=== PATIENT | female | born 1960 ===

== ENCOUNTER → 2017-09-16 15:12 | Outpatient (CLI) | payer OTHER, SELFPAY ==
--- NOTE | 2017-09-16 | DI.MG.S_ITS ---
BILATERAL DIGITAL SCREENING MAMMOGRAM 3D/2D WITH CAD: 09/16/2017 CLINICAL: Patient presents for routine screening. S/P bilateral augmentation. Family history of breast cancer. Comparison is made to exams dated: 02/07/2016 mammogram, 11/19/2011 mammogram, and 04/21/2007 mammogram - [facility] [place]. There are scattered fibroglandular elements in both breasts. Current study was also evaluated with a Computer Aided Detection (CAD) system. Bilateral breast implants are intact. No significant masses, calcifications, or other findings are seen in either breast. There has been no significant interval change. IMPRESSION: NEGATIVE There is no mammographic evidence of malignancy. A 1 year screening mammogram is recommended. This exam was interpreted at Station ID: [id number]. NOTE: For mammograms, a report in lay terms will be sent to the patient. Approximately 15% of breast malignancies will not be visualized mammographically. In the management of a palpable breast mass, a negative mammogram must not discourage biopsy of a clinically suspicious lesion. Electronically Signed By: Saturnino hernandez/eduardo:09/16/2017 15:57:53 letter sent: Normal Exam ACR BI-RADS Category 1: Negative [id number]
== END ==
PROVIDERS: Visit Provider Internal Medicine
DX: Z12.31 Encounter for screening mammogram for malignant neoplasm of breast (principal); Z80.3 Family history of malignant neoplasm of breast; Z98.82 Breast implant status
CPT/HCPCS: 77063; 77067

== ENCOUNTER 2017-11-25 13:45 | Outpatient (RCR) | payer OTHER, SELFPAY ==
--- NOTE | 2017-10-06 14:30 | PT.OIE ---
Current Diagnoses Lumbago with sciatica, right side (10/06/17) Past Medical History (Last Updated 09/24/17 @ 17:27 by Yolie Argueta LPN) ADHD (attention deficit hyperactivity disorder) (Chronic Unknown) Anxiety (Chronic Unknown) Bipolar disorder (Chronic Unknown) Chronic back pain (Chronic Unknown) Depression (Chronic Unknown) Fibromyalgia (Chronic 2010) Hypothyroidism (Chronic Unknown) PTSD (post-traumatic stress disorder) (Chronic Unknown) Suicidal ideations (Chronic Unknown) Tinnitus of both ears (Chronic Unknown) Ankle pain (Resolved 2006) Fractures (Resolved ~2008) Positive TB test (Resolved Unknown) Past Surgical History (Last Updated 09/24/17 @ 17:27 by Yolie Argueta LPN) History of tonsillectomy (Resolved 1969) Hx of appendectomy (Resolved 1986) Hx of bladder repair surgery (Resolved Unknown) Hx of hysterectomy (Resolved 2011) Hx of tubal ligation (Resolved 1997) Provider Visit Care Team Role Provider Type Layo Aleman Attending Provider Non-Staff Primary Care Provider Specialty: [facility] Address: [address] [place] [address] Email: Physical Therapy Initial Evaluation PT-OP-A Visit Information Start: 10/07/17 17:41 Freq: Status: Active Protocol: Document 10/06/17 13:45 DCW (Rec: 10/07/17 18:20 DCW [id number]) Out-Patient Physical Therapy Visit Information Visit Information Visit Type Initial Evaluation Visit Start Time 13:45 Visit Stop Time 14:30 Total Visit Minutes 45 Visit Number 1 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 Pt reports she received an MRI last December, which showed scoliosis and arthritis. Pt reports her pain on an average day is a 3-4/10 , however when she has a bad episode, pain increases to a 15/10. It's worse than childbirth. A lot worse, and I had all three kids without any drugs. Pt reports her pain appears to worsen with changes in the weather, and reports last winter was her worst period of time. Pt reports that nothing helps her pain, and she has had to go to the ER multiple times to get any relief. Treatment Goals Patient/Caregiver Goals I want to be able to go back to the gym a few days a week without worrying about my back . And I want to be able to play with my grandkids. Prior Functional Status Baseline Function- ADL's Independent Baseline Function- Mobility Independent Current Functional Impairments (Reported) Functional Limitations- Recreation/ Generally able to do most of Hobbies her hobbies, however when she is experiencing an episode of bad pain, she is unable to do anything at all. Personal Factors Other Personal Factors That May Effect Bipolar disorder, Depression, Therapy/Recovery Hx TBI, Fibromyalgia PT-OP-C Subjective Start: 10/07/17 17:41 Freq: Status: Active Protocol: Document 10/06/17 13:45 DCW (Rec: 10/07/17 18:20 DCW [id number]) OP-PT Pain Assessment Pain Assessment Grid Paper Pain Assessment Grid Completed Yes Location Lower Back Intensity 4 Scale Used Numeric (1 - 10) PT-OP-F Manual Assessment Start: 10/07/17 17:41 Freq: Status: Active Protocol: Document 10/06/17 13:45 DCW (Rec: 10/07/17 18:20 DCW [id number]) Manual Assessments Soft Tissue Assessment Soft Tissue Mobility Assessment Moderate Tone: Right Quadratus Lumborum, Right Piriformis Joint Mobility Assessment Joint Mobility Assessment Elevated right PIIS, depressed left PSIS PT-OP-K Range of Motion Start: 10/07/17 17:41 Freq: Status: Active Protocol: Document 10/06/17 13:45 DCW (Rec: 10/07/17 18:20 DCW [id number]) Lumbar Spine Range of Motion Lumbar Spine Active Degrees Testing Position Standing Flexion 60 Extension 20 ROM Limitations Pain PT-OP-L Special Tests Start: 10/07/17 17:41 Freq: Status: Active Protocol: Document 10/06/17 13:45 DCW (Rec: 10/07/17 18:20 DCW [id number]) Special Tests Lumbar Spine Special Tests Other- 1 Test Results Lateral SI pressure - R positive Straight Leg Raise Test Results Positive R ipsilateral Slump Test Results Positive bilaterally Hip Special Tests CARL Test Results Positive R ipsilateral PT-OP-M Strength Start: 10/07/17 18:20 Freq: Status: Active Protocol: Document 10/06/17 13:45 DCW (Rec: 10/07/17 18:23 DCW [id number]) Trunk Strength Trunk Manual Muscle Testing Testing Position Supine Core Stabilization Poor body awareness, difficulty kasey transverse abdominus, unable to hole PPT with TrA activation longer than 5 seconds. 3/5 Hip Strength Hip Manual Muscle Testing Right Flexion (L2) 4 Good Abduction 4 Good Adduction 4- Good- External Rotation 4 Good Internal Rotation 4- Good- Left Flexion (L2) 4 Good Abduction 4 Good Adduction 4- Good- External Rotation 4 Good Internal Rotation 4- Good- Knee Strength Knee Manual Muscle Testing Right Flexion (S2) 4 Good Extension (L3) 4+ Good+ Left Flexion (S2) 4 Good Extension (L3) 4+ Good+ PT-OP-Q Treatments Start: 10/07/17 17:41 Freq: Status: Active Protocol: Document 10/06/17 13:45 DCW (Rec: 10/07/17 18:20 [facility] [id number]) Therapeutic Exercises Supine Exercises 2 Supine Exercise Name PPT /c trA activation Side bilateral Comments 5 second hold 1 Supine Exercise Name Opposite [id number] Piriformis stretch Side right PT-OP-T Assessment and Plan Start: 10/07/17 17:41 Freq: Status: Active Protocol: Document 10/06/17 13:45 DCW (Rec: 10/07/17 18:20 [facility] [id number]) Physical Therapy Assessment Rehab Potential Rehabilitation Potential Good Evaluation Complexity Number of Personal Factors/Comorbidities 3 or More Number of Body Systems Impaired 4 or More Clinical Presentation at Evaluation Unstable Impairments Impairments Activity Tolerance Pain Posture ROM Soft Tissue Mobility Strength Tone Goals Five Impairment Sacral tilt Short Term Goal (STG) Positioning of the sacrum WNL STG Duration 10/27/17 Four Impairment Lumbar ROM Alf Goal (LTG) Lumbar flexion/extension to WNL LTG Duration 9/17/18 Three Impairment Strength Short Term Goal (STG) Bilateral lower extremity MMT to grossly 4+/5 STG Duration 10/27/17 Alf Goal (LTG) Core strength to 4/5 LTG Duration 11/17/17 Two Impairment Activity Participation Alf Goal (LTG) Pt to attend gym 3x/ week over a two week period with no increased back pain LTG Duration 11/17/17 One Impairment Pt does not have an appropriate HEP Short Term Goal (STG) Pt to display independence and compliance with HEP STG Duration 10/27/17 Assessment Summary Assessment Pt presents with radicular low back pain secondary to DJD and arthritis, LE weakness, increased right-sided muscle tone, sacral tilting, and significant core weakness. Pt should benefit from skilled therapy focusing on core and leg strengthening, stability training, manual therapy, and pain-control modalities. Pt may benefit from an SI belt to help stabilize her SI joint if therapy is not successful. Physical Therapy Plan Frequency and Duration Frequency of Treatment 2x/Week Duration of Treatment 8 weeks Plan of Care Start Date 10/06/17 Plan of Care End Date 12/01/17 Therapeutic Interventions Therapeutic Interventions Aquatic Therapy Home Exercise Program Joint Mobilizations Manual Therapy Neuromuscular Re-education Self-Care/Home Management Soft Tissue Mobilization Taping Therapeutic Activities Therapeutic Exercises Modalities Cold Pack/Ice Massage Electric Stimulation Hot Packs Traction- Mechanical Ultrasound Next Visit Focus/Plan Next Note Type Treatment Note Next Visit Plan Core strengthening, SI joint mobilizations, STM, traction, modalities
--- NOTE | 2017-10-06 14:30 | PT.OPPOC ---
Current Diagnoses Lumbago with sciatica, right side (10/06/17) Provider Visit Care Team Role Provider Type Layo Aleman Attending Provider Non-Staff Primary Care Provider Specialty: Family Practice Address: [address] [place] [address] [id number], [place], [address] Email: Plan Of Care PT-OP-T Assessment and Plan Start: 10/07/17 17:41 Freq: Status: Active Protocol: Document 10/06/17 13:45 DCW (Rec: 10/07/17 18:20 DCW [id number]) Physical Therapy Assessment Rehab Potential Rehabilitation Potential Good Evaluation Complexity Number of Personal Factors/Comorbidities 3 or More Number of Body Systems Impaired 4 or More Clinical Presentation at Evaluation Unstable Impairments Impairments Activity Tolerance Pain Posture ROM Soft Tissue Mobility Strength Tone Goals Five Impairment Sacral tilt Short Term Goal (STG) Positioning of the sacrum WNL STG Duration 10/27/17 Four Impairment Lumbar ROM Jail Goal (LTG) Lumbar flexion/extension to WNL LTG Duration 11/17/17 Three Impairment Strength Short Term Goal (STG) Bilateral lower extremity MMT to grossly 4+/5 STG Duration 10/27/17 Corn Shredder Goal (LTG) Core strength to 4/5 LTG Duration 11/17/17 Two Impairment Activity Participation Corn Shredder Goal (LTG) Pt to attend gym 3x/ week over a two week period with no increased back pain LTG Duration 11/17/17 One Impairment Pt does not have an appropriate HEP Short Term Goal (STG) Pt to display independence and compliance with HEP STG Duration 10/27/17 Assessment Summary Assessment Pt presents with radicular low back pain secondary to DJD and arthritis, LE weakness, increased right-sided muscle tone, sacral tilting, and significant core weakness. Pt should benefit from skilled therapy focusing on core and leg strengthening, stability training, manual therapy, and pain-control modalities. Pt may benefit from an SI belt to help stabilize her SI joint if therapy is not successful. Physical Therapy Plan Frequency and Duration Frequency of Treatment 2x/Week Duration of Treatment 8 weeks Plan of Care Start Date 10/06/17 Plan of Care End Date 12/01/17 Therapeutic Interventions Therapeutic Interventions Aquatic Therapy Home Exercise Program Joint Mobilizations Manual Therapy Neuromuscular Re-education Self-Care/Home Management Soft Tissue Mobilization Taping Therapeutic Activities Therapeutic Exercises Modalities Cold Pack/Ice Massage Electric Stimulation Hot Packs Traction- Mechanical Ultrasound Next Visit Focus/Plan Next Note Type Treatment Note Next Visit Plan Core strengthening, SI joint mobilizations, STM, traction, modalities Plan of Care Dates Plan of Care Start Date 10/06/17 Plan of Care End Date 12/01/17 Please Sign and Return: I have reviewed this Plan of Care and certify that the skilled therapy services above are required to meet the patient?s needs. Physician Signature Date Printed Name and Credentials Clinical Instructor Signature Printed Name and Credentials
--- NOTE | 2017-10-21 16:23 | PT.OTN ---
Current Diagnoses Lumbago with sciatica, right side (10/21/17) Physical Therapy Treatment Note PT-OP-A Visit Information Start: 10/07/17 17:41 Freq: Status: Active Protocol: Document 10/21/17 15:11 GGD (Rec: 10/21/17 15:17 GGD [email or web address]) Out-Patient Physical Therapy Visit Information Visit Information Visit Type Treatment Note Visit Start Time 14:30 Visit Stop Time 15:25 Total Visit Minutes 55 Visit Number 2 Number of VP PUBLIC RELATIONS Visits 1 Evaluation Information Evaluation Date 10/06/17 PT-OP-B Current Condition Start: 10/07/17 17:41 Freq: Status: Active Protocol: Document 10/06/17 13:45 DCW (Rec: 10/07/17 18:20 DCW [id number]) Current Condition History of Current Condition Onset Date s/p one year Current Complaints Radicular low back pain History of Current Condition Pt is a 56 year old female presenting with a year-long history of low back pain radiating down her right leg, from her posterior hip to her lateral thigh, across her anterior knee, and down to her dorsal foot. Pt reports she received an MRI last December, which showed scoliosis and arthritis. Pt reports her pain on an average day is a 3-4/10 , however when she has a bad episode, pain increases to a 15/10. It's worse than childbirth. A lot worse, and I had all three kids without any drugs. Pt reports her pain appears to worsen with changes in the weather, and reports last winter was her worst period of time. Pt reports that nothing helps her pain, and she has had to go to the ER multiple times to get any relief. Treatment Goals Patient/Caregiver Goals I want to be able to go back to the gym a few days a week without worrying about my back . And I want to be able to play with my grandkids. Prior Functional Status Baseline Function- ADL's Independent Baseline Function- Mobility Independent Current Functional Impairments (Reported) Functional Limitations- Recreation/ Generally able to do most of Hobbies her hobbies, however when she is experiencing an episode of bad pain, she is unable to do anything at all. Personal Factors Other Personal Factors That May Effect Bipolar disorder, Depression, Therapy/Recovery Hx TBI, Fibromyalgia PT-OP-C Subjective Start: 10/07/17 17:41 Freq: Status: Active Protocol: Document 10/21/17 15:11 GGD (Rec: 10/21/17 15:17 GGD [email or web address]) OP-PT Subjective Patient Comments Patient Comments PT states she doing HEP without increase in pain. PT-OP-F Manual Assessment Start: 10/07/17 17:41 Freq: Status: Active Protocol: Document 10/06/17 13:45 DCW (Rec: 10/07/17 18:20 DCW [id number]) Manual Assessments Soft Tissue Assessment Soft Tissue Mobility Assessment Moderate Tone: Right Quadratus Lumborum, Right Piriformis Joint Mobility Assessment Joint Mobility Assessment Elevated right PIIS, depressed left PSIS PT-OP-K Range of Motion Start: 10/07/17 17:41 Freq: Status: Active Protocol: Document 10/06/17 13:45 DCW (Rec: 10/07/17 18:20 DCW [id number]) Lumbar Spine Range of Motion Lumbar Spine Active Degrees Testing Position Standing Flexion 60 Extension 20 ROM Limitations Pain PT-OP-L Special Tests Start: 10/07/17 17:41 Freq: Status: Active Protocol: Document 10/06/17 13:45 DCW (Rec: 10/07/17 18:20 DCW [id number]) Special Tests Lumbar Spine Special Tests Other- 1 Test Results Lateral SI pressure - R positive Straight Leg Raise Test Results Positive R ipsilateral Slump Test Results Positive bilaterally Hip Special Tests CARL Test Results Positive R ipsilateral PT-OP-M Strength Start: 10/07/17 18:20 Freq: Status: Active Protocol: Document 10/06/17 13:45 DCW (Rec: 10/07/17 18:23 DCW [id number]) Trunk Strength Trunk Manual Muscle Testing Testing Position Supine Core Stabilization Poor body awareness, difficulty kasey transverse abdominus, unable to hole PPT with TrA activation longer than 5 seconds. 3/5 Hip Strength Hip Manual Muscle Testing Right Flexion (L2) 4 Good Abduction 4 Good Adduction 4- Good- External Rotation 4 Good Internal Rotation 4- Good- Left Flexion (L2) 4 Good Abduction 4 Good Adduction 4- Good- External Rotation 4 Good Internal Rotation 4- Good- Knee Strength Knee Manual Muscle Testing Right Flexion (S2) 4 Good Extension (L3) 4+ Good+ Left Flexion (S2) 4 Good Extension (L3) 4+ Good+ PT-OP-Q Treatments Start: 10/07/17 17:41 Freq: Status: Active Protocol: Document 10/21/17 15:11 GGD (Rec: 10/21/17 15:17 GGD [email or web address]) Therapeutic Exercises Supine Exercises 6 Supine Exercise Name Hamstring str. 5 Supine Exercise Name Hands on knees push Reps/Minutes 30 4 Supine Exercise Name PPT with marches 3 Supine Exercise Name bridges 2 Supine Exercise Name PPT /c trA activation Side bilateral Comments 5 second hold 1 Supine Exercise Name Opposite [id number]-[id number] Piriformis stretch Side right Sidelying Exercises 1 Sidelying Exercise Name Clamshells Manual Therapy Treatment Soft Tissue Mobilization 1 Body Location L/S and priformis Mobilization Type Myofascial Release Rolling Intensity/Depth Moderate Body Position Sidelying PT-OP-R Modalities Start: 10/07/17 17:41 Freq: Status: Active Protocol: Document 10/21/17 15:11 GGD (Rec: 10/21/17 15:17 GGD [email or web address]) Electric Stimulation Electric Stimulation Interferential Current (IFC) Body Location L/S Duration (Minutes) 15 Contraction Type Normal Patient Position Hooklying Combined With Heat/Cold Hot Pack PT-OP-T Assessment and Plan Start: 10/07/17 17:41 Freq: Status: Active Protocol: Document 10/21/17 15:11 GGD (Rec: 10/21/17 15:17 GGD [email or web address]) Physical Therapy Assessment Assessment Summary Assessment Pt need cues for exercise. She had no C/O pain with exercise . She has poor core control. Physical Therapy Plan Frequency and Duration Frequency of Treatment 2x/Week Duration of Treatment 8 weeks Plan of Care Start Date 10/06/17 Plan of Care End Date 12/01/17 Next Visit Focus/Plan Next Note Type Treatment Note Next Visit Plan Core strengthening, SI joint mobilizations, STM, traction, modalities
--- NOTE | 2017-10-28 16:01 | PT.OTN ---
Current Diagnoses Lumbago with sciatica, right side (10/28/17) Physical Therapy Treatment Note PT-OP-A Visit Information Start: 10/07/17 17:41 Freq: Status: Active Protocol: Document 10/28/17 14:30 GGD (Rec: 10/28/17 16:01 GGD [email or web address]) Out-Patient Physical Therapy Visit Information Visit Information Visit Type Treatment Note Visit Start Time 14:30 Visit Stop Time 15:25 Total Visit Minutes 55 Visit Number 3 Number of OPERATIONS EXPERT Visits 2 Evaluation Information Evaluation Date 10/06/17 PT-OP-B Current Condition Start: 10/07/17 17:41 Freq: Status: Active Protocol: Document 10/06/17 13:45 DCW (Rec: 10/07/17 18:20 DCW [id number]) Current Condition History of Current Condition Onset Date s/p one year Current Complaints Radicular low back pain History of Current Condition Pt is a 56 year old female presenting with a year-long history of low back pain radiating down her right leg, from her posterior hip to her lateral thigh, across her anterior knee, and down to her dorsal foot. Pt reports she received an MRI last December, which showed scoliosis and arthritis. Pt reports her pain on an average day is a 3-4/10 , however when she has a bad episode, pain increases to a 15/10. It's worse than childbirth. A lot worse, and I had all three kids without any drugs. Pt reports her pain appears to worsen with changes in the weather, and reports last winter was her worst period of time. Pt reports that nothing helps her pain, and she has had to go to the ER multiple times to get any relief. Treatment Goals Patient/Caregiver Goals I want to be able to go back to the gym a few days a week without worrying about my back . And I want to be able to play with my grandkids. Prior Functional Status Baseline Function- ADL's Independent Baseline Function- Mobility Independent Current Functional Impairments (Reported) Functional Limitations- Recreation/ Generally able to do most of Hobbies her hobbies, however when she is experiencing an episode of bad pain, she is unable to do anything at all. Personal Factors Other Personal Factors That May Effect Bipolar disorder, Depression, Therapy/Recovery Hx TBI, Fibromyalgia PT-OP-C Subjective Start: 10/07/17 17:41 Freq: Status: Active Protocol: Document 10/28/17 14:30 GGD (Rec: 10/28/17 16:01 GGD [email or web address]) OP-PT Subjective Patient Comments Patient Comments Pt states that she not have had pain. She been doing HEP and would like to increase HEP . PT-OP-F Manual Assessment Start: 10/07/17 17:41 Freq: Status: Active Protocol: Document 10/06/17 13:45 DCW (Rec: 10/07/17 18:20 DCW [id number]) Manual Assessments Soft Tissue Assessment Soft Tissue Mobility Assessment Moderate Tone: Right Quadratus Lumborum, Right Piriformis Joint Mobility Assessment Joint Mobility Assessment Elevated right PIIS, depressed left PSIS PT-OP-K Range of Motion Start: 10/07/17 17:41 Freq: Status: Active Protocol: Document 10/06/17 13:45 DCW (Rec: 10/07/17 18:20 DCW [id number]) Lumbar Spine Range of Motion Lumbar Spine Active Degrees Testing Position Standing Flexion 60 Extension 20 ROM Limitations Pain PT-OP-L Special Tests Start: 10/07/17 17:41 Freq: Status: Active Protocol: Document 10/06/17 13:45 DCW (Rec: 10/07/17 18:20 DCW [id number]) Special Tests Lumbar Spine Special Tests Other- 1 Test Results Lateral SI pressure - R positive Straight Leg Raise Test Results Positive R ipsilateral Slump Test Results Positive bilaterally Hip Special Tests CARL Test Results Positive R ipsilateral PT-OP-M Strength Start: 10/07/17 18:20 Freq: Status: Active Protocol: Document 10/06/17 13:45 DCW (Rec: 10/07/17 18:23 DCW [id number]) Trunk Strength Trunk Manual Muscle Testing Testing Position Supine Core Stabilization Poor body awareness, difficulty kasey transverse abdominus, unable to hole PPT with TrA activation longer than 5 seconds. 3/5 Hip Strength Hip Manual Muscle Testing Right Flexion (L2) 4 Good Abduction 4 Good Adduction 4- Good- External Rotation 4 Good Internal Rotation 4- Good- Left Flexion (L2) 4 Good Abduction 4 Good Adduction 4- Good- External Rotation 4 Good Internal Rotation 4- Good- Knee Strength Knee Manual Muscle Testing Right Flexion (S2) 4 Good Extension (L3) 4+ Good+ Left Flexion (S2) 4 Good Extension (L3) 4+ Good+ PT-OP-Q Treatments Start: 10/07/17 17:41 Freq: Status: Active Protocol: Document 10/28/17 14:30 GGD (Rec: 10/28/17 16:01 GGD [email or web address]) Therapeutic Exercises Supine Exercises 6 Supine Exercise Name Hamstring str. 5 Supine Exercise Name Hands on knees push Reps/Minutes 30 4 Supine Exercise Name PPT with marches 3 Supine Exercise Name bridges with marches 1 Supine Exercise Name Opposite yelh-is-rtrkpfge Piriformis stretch Side right Sidelying Exercises 1 Sidelying Exercise Name Clamshells Other Exercises 3 Other Exercise Name Quad alternative leg lift 2 Other Exercise Name Dioni pose 1 Other Exercise Name cat cow in quad PT-OP-R Modalities Start: 10/07/17 17:41 Freq: Status: Active Protocol: Document 10/28/17 14:30 GGD (Rec: 10/28/17 16:01 GGD [email or web address]) Electric Stimulation Electric Stimulation Interferential Current (IFC) Body Location L/S Duration (Minutes) 15 Contraction Type Normal Patient Position Hooklying Combined With Heat/Cold Hot Pack PT-OP-T Assessment and Plan Start: 10/07/17 17:41 Freq: Status: Active Protocol: Document 10/28/17 14:30 GGD (Rec: 10/28/17 16:01 GGD [email or web address]) Physical Therapy Assessment Assessment Summary Assessment Pt needing cues for exercise techinque. She able to progress strengthening and flexibility. She is improving with core control. Physical Therapy Plan Frequency and Duration Frequency of Treatment 2x/Week Duration of Treatment 8 weeks Plan of Care Start Date 10/06/17 Plan of Care End Date 12/01/17 Next Visit Focus/Plan Next Note Type Treatment Note Next Visit Plan Core strengthening, HEP progression.
--- NOTE | 2017-10-31 12:40 | PT.OTN ---
Current Diagnoses Lumbago with sciatica, right side (10/31/17) Physical Therapy Treatment Note PT-OP-A Visit Information Start: 10/07/17 17:41 Freq: Status: Active Protocol: Document 10/31/17 12:40 RCC (Rec: 10/31/17 14:56 RCC [email or web address]) Out-Patient Physical Therapy Visit Information Visit Information Visit Type Treatment Note Visit Start Time 12:00 Visit Stop Time 12:40 Total Visit Minutes 40 Visit Number 4 Number of GASOLINE ATTENDANT Visits 0 Evaluation Information Evaluation Date 10/06/17 PT-OP-B Current Condition Start: 10/07/17 17:41 Freq: Status: Active Protocol: Document 10/06/17 13:45 DCW (Rec: 10/07/17 18:20 DCW [id number]) Current Condition History of Current Condition Onset Date s/p one year Current Complaints Radicular low back pain History of Current Condition Pt is a 56 year old female presenting with a year-long history of low back pain radiating down her right leg, from her posterior hip to her lateral thigh, across her anterior knee, and down to her dorsal foot. Pt reports she received an MRI last December, which showed scoliosis and arthritis. Pt reports her pain on an average day is a 3-4/10 , however when she has a bad episode, pain increases to a 15/10. It's worse than childbirth. A lot worse, and I had all three kids without any drugs. Pt reports her pain appears to worsen with changes in the weather, and reports last winter was her worst period of time. Pt reports that nothing helps her pain, and she has had to go to the ER multiple times to get any relief. Treatment Goals Patient/Caregiver Goals I want to be able to go back to the gym a few days a week without worrying about my back . And I want to be able to play with my grandkids. Prior Functional Status Baseline Function- ADL's Independent Baseline Function- Mobility Independent Current Functional Impairments (Reported) Functional Limitations- Recreation/ Generally able to do most of Hobbies her hobbies, however when she is experiencing an episode of bad pain, she is unable to do anything at all. Personal Factors Other Personal Factors That May Effect Bipolar disorder, Depression, Therapy/Recovery Hx TBI, Fibromyalgia PT-OP-C Subjective Start: 10/07/17 17:41 Freq: Status: Active Protocol: Document 10/31/17 12:40 RCC (Rec: 10/31/17 14:56 RCC [email or web address]) OP-PT Subjective Patient Comments Patient Comments pt still without pain radiating down RLE, but still pain in lower back SI region. PT-OP-F Manual Assessment Start: 10/07/17 17:41 Freq: Status: Active Protocol: Document 10/06/17 13:45 DCW (Rec: 10/07/17 18:20 DCW [id number]) Manual Assessments Soft Tissue Assessment Soft Tissue Mobility Assessment Moderate Tone: Right Quadratus Lumborum, Right Piriformis Joint Mobility Assessment Joint Mobility Assessment Elevated right PIIS, depressed left PSIS PT-OP-K Range of Motion Start: 10/07/17 17:41 Freq: Status: Active Protocol: Document 10/06/17 13:45 DCW (Rec: 10/07/17 18:20 DCW [id number]) Lumbar Spine Range of Motion Lumbar Spine Active Degrees Testing Position Standing Flexion 60 Extension 20 ROM Limitations Pain PT-OP-L Special Tests Start: 10/07/17 17:41 Freq: Status: Active Protocol: Document 10/06/17 13:45 DCW (Rec: 10/07/17 18:20 DCW [id number]) Special Tests Lumbar Spine Special Tests Other- 1 Test Results Lateral SI pressure - R positive Straight Leg Raise Test Results Positive R ipsilateral Slump Test Results Positive bilaterally Hip Special Tests CARL Test Results Positive R ipsilateral PT-OP-M Strength Start: 10/07/17 18:20 Freq: Status: Active Protocol: Document 10/06/17 13:45 DCW (Rec: 10/07/17 18:23 DCW [id number]) Trunk Strength Trunk Manual Muscle Testing Testing Position Supine Core Stabilization Poor body awareness, difficulty kasey transverse abdominus, unable to hole PPT with TrA activation longer than 5 seconds. 3/5 Hip Strength Hip Manual Muscle Testing Right Flexion (L2) 4 Good Abduction 4 Good Adduction 4- Good- External Rotation 4 Good Internal Rotation 4- Good- Left Flexion (L2) 4 Good Abduction 4 Good Adduction 4- Good- External Rotation 4 Good Internal Rotation 4- Good- Knee Strength Knee Manual Muscle Testing Right Flexion (S2) 4 Good Extension (L3) 4+ Good+ Left Flexion (S2) 4 Good Extension (L3) 4+ Good+ PT-OP-Q Treatments Start: 10/07/17 17:41 Freq: Status: Active Protocol: Document 10/31/17 12:40 RCC (Rec: 10/31/17 14:56 [facility] [email or web address]) Therapeutic Exercises Supine Exercises 8 Supine Exercise Name knee flex/ext and LTR with ball Side bilateral Equipment Used 55 cm 7 Supine Exercise Name Bridge with ball Side bilateral Equipment Used 55 cm Reps/Minutes 15 4 Supine Exercise Name PPT with marches 3 Supine Exercise Name bridges with marches Comments d/c due to pelvic motion/ instability Prone Exercises 1 Prone Exercise Name plank- forward Side bilateral Reps/Minutes 15 sec x 4 Comments elbows and knees Sidelying Exercises 2 Sidelying Exercise Name SLR hip abduction Side bilateral Reps/Minutes 10 Standing Exercises 1 Standing Exercise Name lateral walks Side bilateral Resistance L2 Reps/Minutes 2 laps each direction Other Exercises 3 Other Exercise Name Quad alternative leg lift 1 Other Exercise Name cat cow in quad PT-OP-R Modalities Start: 10/07/17 17:41 Freq: Status: Active Protocol: Document 10/31/17 12:40 RCC (Rec: 10/31/17 14:56 [facility] [email or web address]) Electric Stimulation Electric Stimulation Interferential Current (IFC) Body Location L/S Duration (Minutes) 10 Contraction Type Normal Patient Position Hooklying Combined With Heat/Cold Cold Pack Comments pt requested only 10 min and cold pack today PT-OP-T Assessment and Plan Start: 10/07/17 17:41 Freq: Status: Active Protocol: Document 10/31/17 12:40 RCC (Rec: 10/31/17 14:56 [facility] [email or web address]) Physical Therapy Assessment Assessment Summary Assessment Pt with excessive pelvic motion with bridge + marching activity, and c/o increased LBP with this activity on the R. Pt tolerated planks on knees, but only able to hold for 15 sec at a time. Physical Therapy Plan Frequency and Duration Frequency of Treatment 2x/Week Duration of Treatment 8 weeks Plan of Care Start Date 10/06/17 Plan of Care End Date 12/01/17 Next Visit Focus/Plan Next Note Type Treatment Note Next Visit Plan core stabilization, pelvic alignments and posture.
--- NOTE | 2017-11-11 17:16 | PT.OTN ---
Current Diagnoses Lumbago with sciatica, right side (11/11/17) Physical Therapy Treatment Note PT-OP-A Visit Information Start: 10/07/17 17:41 Freq: Status: Active Protocol: Document 11/11/17 17:11 GGD (Rec: 11/11/17 17:16 GGD [email or web address]) Out-Patient Physical Therapy Visit Information Visit Information Visit Type Treatment Note Visit Start Time 14:30 Visit Stop Time 15:25 Total Visit Minutes 55 Visit Number 5 Number of STEAM SHOVEL OPERATOR Visits 1 Evaluation Information Evaluation Date 10/06/17 PT-OP-B Current Condition Start: 10/07/17 17:41 Freq: Status: Active Protocol: Document 10/06/17 13:45 DCW (Rec: 10/07/17 18:20 DCW [id number]) Current Condition History of Current Condition Onset Date s/p one year Current Complaints Radicular low back pain History of Current Condition Pt is a 56 year old female presenting with a year-long history of low back pain radiating down her right leg, from her posterior hip to her lateral thigh, across her anterior knee, and down to her dorsal foot. Pt reports she received an MRI last December, which showed scoliosis and arthritis. Pt reports her pain on an average day is a 3-4/10 , however when she has a bad episode, pain increases to a 15/10. It's worse than childbirth. A lot worse, and I had all three kids without any drugs. Pt reports her pain appears to worsen with changes in the weather, and reports last winter was her worst period of time. Pt reports that nothing helps her pain, and she has had to go to the ER multiple times to get any relief. Treatment Goals Patient/Caregiver Goals I want to be able to go back to the gym a few days a week without worrying about my back . And I want to be able to play with my grandkids. Prior Functional Status Baseline Function- ADL's Independent Baseline Function- Mobility Independent Current Functional Impairments (Reported) Functional Limitations- Recreation/ Generally able to do most of Hobbies her hobbies, however when she is experiencing an episode of bad pain, she is unable to do anything at all. Personal Factors Other Personal Factors That May Effect Bipolar disorder, Depression, Therapy/Recovery Hx TBI, Fibromyalgia PT-OP-C Subjective Start: 10/07/17 17:41 Freq: Status: Active Protocol: Document 11/11/17 17:11 GGD (Rec: 11/11/17 17:16 GGD [email or web address]) OP-PT Subjective Patient Comments Patient Comments Pt states she had more back pain. She feels it's due to the weather. She has been doing HEP and I gym program PT-OP-F Manual Assessment Start: 10/07/17 17:41 Freq: Status: Active Protocol: Document 10/06/17 13:45 DCW (Rec: 10/07/17 18:20 DCW [id number]) Manual Assessments Soft Tissue Assessment Soft Tissue Mobility Assessment Moderate Tone: Right Quadratus Lumborum, Right Piriformis Joint Mobility Assessment Joint Mobility Assessment Elevated right PIIS, depressed left PSIS PT-OP-K Range of Motion Start: 10/07/17 17:41 Freq: Status: Active Protocol: Document 10/06/17 13:45 DCW (Rec: 10/07/17 18:20 DCW [id number]) Lumbar Spine Range of Motion Lumbar Spine Active Degrees Testing Position Standing Flexion 60 Extension 20 ROM Limitations Pain PT-OP-L Special Tests Start: 10/07/17 17:41 Freq: Status: Active Protocol: Document 10/06/17 13:45 DCW (Rec: 10/07/17 18:20 DCW [id number]) Special Tests Lumbar Spine Special Tests Other- 1 Test Results Lateral SI pressure - R positive Straight Leg Raise Test Results Positive R ipsilateral Slump Test Results Positive bilaterally Hip Special Tests CARL Test Results Positive R ipsilateral PT-OP-M Strength Start: 10/07/17 18:20 Freq: Status: Active Protocol: Document 10/06/17 13:45 DCW (Rec: 10/07/17 18:23 DCW [id number]) Trunk Strength Trunk Manual Muscle Testing Testing Position Supine Core Stabilization Poor body awareness, difficulty kasey transverse abdominus, unable to hole PPT with TrA activation longer than 5 seconds. 3/5 Hip Strength Hip Manual Muscle Testing Right Flexion (L2) 4 Good Abduction 4 Good Adduction 4- Good- External Rotation 4 Good Internal Rotation 4- Good- Left Flexion (L2) 4 Good Abduction 4 Good Adduction 4- Good- External Rotation 4 Good Internal Rotation 4- Good- Knee Strength Knee Manual Muscle Testing Right Flexion (S2) 4 Good Extension (L3) 4+ Good+ Left Flexion (S2) 4 Good Extension (L3) 4+ Good+ PT-OP-Q Treatments Start: 10/07/17 17:41 Freq: Status: Active Protocol: Document 11/11/17 17:11 GGD (Rec: 11/11/17 17:16 GGD [email or web address]) Therapeutic Exercises Supine Exercises 8 Supine Exercise Name knee flex/ext and LTR with ball Side bilateral Equipment Used 55 cm 7 Supine Exercise Name Bridge with ball Side bilateral Equipment Used 55 cm Reps/Minutes 15 4 Supine Exercise Name PPT with marches Prone Exercises 1 Prone Exercise Name plank- forward Side bilateral Reps/Minutes 15 sec x 4 Comments elbows and knees Sidelying Exercises 2 Sidelying Exercise Name SLR hip abduction Side bilateral Reps/Minutes 15 1 Sidelying Exercise Name Clamshells Standing Exercises 1 Standing Exercise Name lateral walks Side bilateral Resistance L2 Reps/Minutes 2 laps each direction Other Exercises 3 Other Exercise Name Quad alternative leg lift 1 Other Exercise Name cat cow in quad PT-OP-R Modalities Start: 10/07/17 17:41 Freq: Status: Active Protocol: Document 11/11/17 17:11 GGD (Rec: 11/11/17 17:16 GGD [email or web address]) Electric Stimulation Electric Stimulation Interferential Current (IFC) Body Location L/S Duration (Minutes) 15 Contraction Type Normal Patient Position Hooklying Combined With Heat/Cold Hot Pack PT-OP-T Assessment and Plan Start: 10/07/17 17:41 Freq: Status: Active Protocol: Document 11/11/17 17:11 GGD (Rec: 11/11/17 17:16 GGD [email or web address]) Physical Therapy Assessment Goals Five Impairment Sacral tilt Short Term Goal (STG) Positioning of the sacrum WNL STG Duration 10/27/17 Four Impairment Lumbar ROM Speech Communication Instructor Goal (LTG) Lumbar flexion/extension to WNL LTG Duration 11/17/17 Three Impairment Strength Short Term Goal (STG) Bilateral lower extremity MMT to grossly 4+/5 STG Duration 10/27/17 Speech Communication Instructor Goal (LTG) Core strength to 4/5 LTG Duration 11/17/17 Two Impairment Activity Participation Speech Communication Instructor Goal (LTG) Pt to attend gym 3x/ week over a two week period with no increased back pain LTG Duration 11/17/17 One Impairment Pt does not have an appropriate HEP Short Term Goal (STG) Pt to display independence and compliance with HEP STG Duration 10/27/17 Assessment Summary Assessment Pt needed cues for exercise techinque and core stabilization. She fatigued quickly with exercise. Physical Therapy Plan Frequency and Duration Frequency of Treatment 2x/Week Duration of Treatment 8 weeks Plan of Care Start Date 10/06/17 Plan of Care End Date 12/01/17 Next Visit Focus/Plan Next Note Type Treatment Note Next Visit Plan core stabilization, pelvic alignments and posture.
--- NOTE | 2017-11-18 15:39 | PT.OTN ---
Current Diagnoses Lumbago with sciatica, right side (11/18/17) Physical Therapy Treatment Note PT-OP-A Visit Information Start: 10/07/17 17:41 Freq: Status: Active Protocol: Document 11/18/17 13:45 DCW (Rec: 11/18/17 15:39 DCW [id number]) Out-Patient Physical Therapy Visit Information Visit Information Visit Type Treatment Note Visit Start Time 13:45 Visit Stop Time 14:40 Total Visit Minutes 55 Visit Number 6 Number of VITICULTURE TEACHER Visits 1 Evaluation Information Evaluation Date 10/06/17 PT-OP-B Current Condition Start: 10/07/17 17:41 Freq: Status: Active Protocol: Document 10/06/17 13:45 DCW (Rec: 10/07/17 18:20 DCW [id number]) Current Condition History of Current Condition Onset Date s/p one year Current Complaints Radicular low back pain History of Current Condition Pt is a 56 year old female presenting with a year-long history of low back pain radiating down her right leg, from her posterior hip to her lateral thigh, across her anterior knee, and down to her dorsal foot. Pt reports she received an MRI last December, which showed scoliosis and arthritis. Pt reports her pain on an average day is a 3-4/10 , however when she has a bad episode, pain increases to a 15/10. It's worse than childbirth. A lot worse, and I had all three kids without any drugs. Pt reports her pain appears to worsen with changes in the weather, and reports last winter was her worst period of time. Pt reports that nothing helps her pain, and she has had to go to the ER multiple times to get any relief. Treatment Goals Patient/Caregiver Goals I want to be able to go back to the gym a few days a week without worrying about my back . And I want to be able to play with my grandkids. Prior Functional Status Baseline Function- ADL's Independent Baseline Function- Mobility Independent Current Functional Impairments (Reported) Functional Limitations- Recreation/ Generally able to do most of Hobbies her hobbies, however when she is experiencing an episode of bad pain, she is unable to do anything at all. Personal Factors Other Personal Factors That May Effect Bipolar disorder, Depression, Therapy/Recovery Hx TBI, Fibromyalgia PT-OP-C Subjective Start: 10/07/17 17:41 Freq: Status: Active Protocol: Document 11/18/17 13:45 DCW (Rec: 11/18/17 15:39 DCW [id number]) OP-PT Subjective Patient Comments Patient Comments Pt reports she had to go to the C?opractor both Friday and Yesterday, admitting she hasn't been feeling that great , but admits that she is for sure better than I was when I started therapy. PT-OP-F Manual Assessment Start: 10/07/17 17:41 Freq: Status: Active Protocol: Document 10/06/17 13:45 DCW (Rec: 10/07/17 18:20 DCW [id number]) Manual Assessments Soft Tissue Assessment Soft Tissue Mobility Assessment Moderate Tone: Right Quadratus Lumborum, Right Piriformis Joint Mobility Assessment Joint Mobility Assessment Elevated right PIIS, depressed left PSIS PT-OP-K Range of Motion Start: 10/07/17 17:41 Freq: Status: Active Protocol: Document 10/06/17 13:45 DCW (Rec: 10/07/17 18:20 DCW [id number]) Lumbar Spine Range of Motion Lumbar Spine Active Degrees Testing Position Standing Flexion 60 Extension 20 ROM Limitations Pain PT-OP-L Special Tests Start: 10/07/17 17:41 Freq: Status: Active Protocol: Document 10/06/17 13:45 DCW (Rec: 10/07/17 18:20 DCW [id number]) Special Tests Lumbar Spine Special Tests Other- 1 Test Results Lateral SI pressure - R positive Straight Leg Raise Test Results Positive R ipsilateral Slump Test Results Positive bilaterally Hip Special Tests CARL Test Results Positive R ipsilateral PT-OP-M Strength Start: 10/07/17 18:20 Freq: Status: Active Protocol: Document 10/06/17 13:45 DCW (Rec: 10/07/17 18:23 DCW [id number]) Trunk Strength Trunk Manual Muscle Testing Testing Position Supine Core Stabilization Poor body awareness, difficulty kasey transverse abdominus, unable to hole PPT with TrA activation longer than 5 seconds. 3/5 Hip Strength Hip Manual Muscle Testing Right Flexion (L2) 4 Good Abduction 4 Good Adduction 4- Good- External Rotation 4 Good Internal Rotation 4- Good- Left Flexion (L2) 4 Good Abduction 4 Good Adduction 4- Good- External Rotation 4 Good Internal Rotation 4- Good- Knee Strength Knee Manual Muscle Testing Right Flexion (S2) 4 Good Extension (L3) 4+ Good+ Left Flexion (S2) 4 Good Extension (L3) 4+ Good+ PT-OP-Q Treatments Start: 10/07/17 17:41 Freq: Status: Active Protocol: Document 11/18/17 13:45 DCW (Rec: 11/18/17 15:39 DCW [id number]) Therapeutic Exercises Supine Exercises 9 Supine Exercise Name PPT - Air bike 8 Supine Exercise Name knee flex/ext and LTR with ball Side bilateral Equipment Used 55 cm 7 Supine Exercise Name Bridge with ball Side bilateral Equipment Used 55 cm Reps/Minutes 15 4 Supine Exercise Name PPT with marches 3 Supine Exercise Name bridges with marches Prone Exercises 2 Prone Exercise Name Prone walk-out Equipment Used 65 cm T-ball Standing Exercises 1 Standing Exercise Name lateral walks Side bilateral Resistance L2 Reps/Minutes 2 laps each direction Manual Therapy Treatment Soft Tissue Mobilization 1 Body Location L/S and priformis Mobilization Type Myofascial Release Rolling Intensity/Depth Moderate Body Position Sidelying PT-OP-R Modalities Start: 10/07/17 17:41 Freq: Status: Active Protocol: Document 11/18/17 13:45 DCW (Rec: 11/18/17 15:39 DCW [id number]) Electric Stimulation Electric Stimulation Interferential Current (IFC) Body Location L/S Duration (Minutes) 15 Contraction Type Normal Patient Position Hooklying Combined With Heat/Cold Hot Pack PT-OP-T Assessment and Plan Start: 10/07/17 17:41 Freq: Status: Active Protocol: Document 11/18/17 13:45 DCW (Rec: 11/18/17 15:39 DCW [id number]) Physical Therapy Assessment Goals Five Impairment Sacral tilt Short Term Goal (STG) Positioning of the sacrum WNL STG Duration 10/27/17 Four Impairment Lumbar ROM Detention Goal (LTG) Lumbar flexion/extension to WNL LTG Duration 11/17/17 Three Impairment Strength Short Term Goal (STG) Bilateral lower extremity MMT to grossly 4+/5 STG Duration 10/27/17 Restaurant Floor Manager Goal (LTG) Core strength to 4/5 LTG Duration 11/17/17 Two Impairment Activity Participation Detention Goal (LTG) Pt to attend gym 3x/ week over a two week period with no increased back pain LTG Duration 11/17/17 One Impairment Pt does not have an appropriate HEP Short Term Goal (STG) Pt to display independence and compliance with HEP STG Duration 10/27/17 Assessment Summary Assessment Pt showing excellent improvement with her back pain , doing well with her core strengthening. Physical Therapy Plan Frequency and Duration Frequency of Treatment 2x/Week Duration of Treatment 8 weeks Plan of Care Start Date 10/06/17 Plan of Care End Date 12/01/17 Next Visit Focus/Plan Next Note Type Treatment Note Next Visit Plan core stabilization, pelvic alignments and posture.
--- NOTE | 2017-11-20 14:17 | PT.OTN ---
Current Diagnoses Lumbago with sciatica, right side (11/20/17) Physical Therapy Treatment Note PT-OP-A Visit Information Start: 10/07/17 17:41 Freq: Status: Active Protocol: Document 11/20/17 14:17 RCC (Rec: 11/20/17 14:26 RCC [email or web address]) Out-Patient Physical Therapy Visit Information Visit Information Visit Type Treatment Note Visit Start Time 13:45 Visit Stop Time 14:17 Total Visit Minutes 32 Visit Number 7 Number of PUBLIC ADMINISTRATION TEACHER Visits 0 Evaluation Information Evaluation Date 10/06/17 PT-OP-B Current Condition Start: 10/07/17 17:41 Freq: Status: Active Protocol: Document 10/06/17 13:45 DCW (Rec: 10/07/17 18:20 DCW [id number]) Current Condition History of Current Condition Onset Date s/p one year Current Complaints Radicular low back pain History of Current Condition Pt is a 56 year old female presenting with a year-long history of low back pain radiating down her right leg, from her posterior hip to her lateral thigh, across her anterior knee, and down to her dorsal foot. Pt reports she received an MRI last December, which showed scoliosis and arthritis. Pt reports her pain on an average day is a 3-4/10 , however when she has a bad episode, pain increases to a 15/10. It's worse than childbirth. A lot worse, and I had all three kids without any drugs. Pt reports her pain appears to worsen with changes in the weather, and reports last winter was her worst period of time. Pt reports that nothing helps her pain, and she has had to go to the ER multiple times to get any relief. Treatment Goals Patient/Caregiver Goals I want to be able to go back to the gym a few days a week without worrying about my back . And I want to be able to play with my grandkids. Prior Functional Status Baseline Function- ADL's Independent Baseline Function- Mobility Independent Current Functional Impairments (Reported) Functional Limitations- Recreation/ Generally able to do most of Hobbies her hobbies, however when she is experiencing an episode of bad pain, she is unable to do anything at all. Personal Factors Other Personal Factors That May Effect Bipolar disorder, Depression, Therapy/Recovery Hx TBI, Fibromyalgia PT-OP-C Subjective Start: 10/07/17 17:41 Freq: Status: Active Protocol: Document 11/20/17 14:17 RCC (Rec: 11/20/17 14:25 RCC [email or web address]) OP-PT Subjective Patient Comments Patient Comments Pt notes that she is having some neck pain, but low back pain has been better over the past week. She went to the chiropractor which made her back sore, but overall not having the type of pain that she was having when she first started. PT-OP-F Manual Assessment Start: 10/07/17 17:41 Freq: Status: Active Protocol: Document 11/20/17 14:17 RCC (Rec: 11/20/17 14:25 RCC [email or web address]) Manual Assessments Soft Tissue Assessment Soft Tissue Mobility Assessment TTP: L piriformis PT-OP-K Range of Motion Start: 10/07/17 17:41 Freq: Status: Active Protocol: Document 10/06/17 13:45 DCW (Rec: 10/07/17 18:20 DCW [id number]) Lumbar Spine Range of Motion Lumbar Spine Active Degrees Testing Position Standing Flexion 60 Extension 20 ROM Limitations Pain PT-OP-L Special Tests Start: 10/07/17 17:41 Freq: Status: Active Protocol: Document 10/06/17 13:45 DCW (Rec: 10/07/17 18:20 DCW [id number]) Special Tests Lumbar Spine Special Tests Other- 1 Test Results Lateral SI pressure - R positive Straight Leg Raise Test Results Positive R ipsilateral Slump Test Results Positive bilaterally Hip Special Tests CARL Test Results Positive R ipsilateral PT-OP-M Strength Start: 10/07/17 18:20 Freq: Status: Active Protocol: Document 10/06/17 13:45 DCW (Rec: 10/07/17 18:23 DCW [id number]) Trunk Strength Trunk Manual Muscle Testing Testing Position Supine Core Stabilization Poor body awareness, difficulty kasey transverse abdominus, unable to hole PPT with TrA activation longer than 5 seconds. 3/5 Hip Strength Hip Manual Muscle Testing Right Flexion (L2) 4 Good Abduction 4 Good Adduction 4- Good- External Rotation 4 Good Internal Rotation 4- Good- Left Flexion (L2) 4 Good Abduction 4 Good Adduction 4- Good- External Rotation 4 Good Internal Rotation 4- Good- Knee Strength Knee Manual Muscle Testing Right Flexion (S2) 4 Good Extension (L3) 4+ Good+ Left Flexion (S2) 4 Good Extension (L3) 4+ Good+ PT-OP-Q Treatments Start: 10/07/17 17:41 Freq: Status: Active Protocol: Document 11/20/17 14:17 RCC (Rec: 11/20/17 14:25 RCC [email or web address]) Therapeutic Exercises Supine Exercises 8 Supine Exercise Name knee flex/ext and LTR with ball Side bilateral Equipment Used 65 cm 7 Supine Exercise Name Bridge with ball Side bilateral Equipment Used 65 cm Reps/Minutes 20 1 Supine Exercise Name Opposite lmow-dr-zibhwnyw Piriformis stretch Side left Sitting Exercises alt UE/LE lift on ball Sitting Exercise Name alternating UE/LE lift with PPT sitting on 65 cm ball Side bilateral Reps/Minutes 10 each Standing Exercises 1 Standing Exercise Name lateral walks Side bilateral Resistance L2 Reps/Minutes 2 laps each direction Manual Therapy Treatment Soft Tissue Mobilization 1 Body Location L/S and priformis Mobilization Type Myofascial Release Rolling Intensity/Depth Moderate Body Position Sidelying Manual Techniques MET Type to correct R posterior ilial rotation Body Position Hooklying PT-OP-R Modalities Start: 10/07/17 17:41 Freq: Status: Active Protocol: Document 11/18/17 13:45 DCW (Rec: 11/18/17 15:39 DCW [id number]) Electric Stimulation Electric Stimulation Interferential Current (IFC) Body Location L/S Duration (Minutes) 15 Contraction Type Normal Patient Position Hooklying Combined With Heat/Cold Hot Pack PT-OP-T Assessment and Plan Start: 10/07/17 17:41 Freq: Status: Active Protocol: Document 11/20/17 14:17 [facility] (Rec: 11/20/17 14:25 [facility] [email or web address]) Physical Therapy Assessment Assessment Summary Assessment Pt without c/o low back pain today. She had some tension increased in the L piriformis, but relieved with STR and stretching. Expect progression toward return to the gym. She may need to be evaluated by her PCP for her neck pain, and potential PT if indicated per PCP. Physical Therapy Plan Frequency and Duration Frequency of Treatment 2x/Week Duration of Treatment 8 weeks Plan of Care Start Date 10/06/17 Plan of Care End Date 12/01/17 Next Visit Focus/Plan Next Note Type Treatment Note Next Visit Plan prog. HEP, plan for pt to return back to gym.
--- NOTE | 2017-11-25 15:48 | PT.OTN ---
Current Diagnoses Lumbago with sciatica, right side (11/25/17) Physical Therapy Treatment Note PT-OP-A Visit Information Start: 10/07/17 17:41 Freq: Status: Active Protocol: Document 11/25/17 13:46 GGD (Rec: 11/25/17 15:48 GGD [email or web address]) Out-Patient Physical Therapy Visit Information Visit Information Visit Type Treatment Note Visit Start Time 13:46 Visit Stop Time 14:26 Total Visit Minutes 40 Visit Number 8 Number of REHAB SPEC Visits 1 Evaluation Information Evaluation Date 10/06/17 PT-OP-B Current Condition Start: 10/07/17 17:41 Freq: Status: Active Protocol: Document 10/06/17 13:45 DCW (Rec: 10/07/17 18:20 DCW [id number]) Current Condition History of Current Condition Onset Date s/p one year Current Complaints Radicular low back pain History of Current Condition Pt is a 56 year old female presenting with a year-long history of low back pain radiating down her right leg, from her posterior hip to her lateral thigh, across her anterior knee, and down to her dorsal foot. Pt reports she received an MRI last December, which showed scoliosis and arthritis. Pt reports her pain on an average day is a 3-4/10 , however when she has a bad episode, pain increases to a 15/10. It's worse than childbirth. A lot worse, and I had all three kids without any drugs. Pt reports her pain appears to worsen with changes in the weather, and reports last winter was her worst period of time. Pt reports that nothing helps her pain, and she has had to go to the ER multiple times to get any relief. Treatment Goals Patient/Caregiver Goals I want to be able to go back to the gym a few days a week without worrying about my back . And I want to be able to play with my grandkids. Prior Functional Status Baseline Function- ADL's Independent Baseline Function- Mobility Independent Current Functional Impairments (Reported) Functional Limitations- Recreation/ Generally able to do most of Hobbies her hobbies, however when she is experiencing an episode of bad pain, she is unable to do anything at all. Personal Factors Other Personal Factors That May Effect Bipolar disorder, Depression, Therapy/Recovery Hx TBI, Fibromyalgia PT-OP-C Subjective Start: 10/07/17 17:41 Freq: Status: Active Protocol: Document 11/25/17 13:46 GGD (Rec: 11/25/17 15:48 GGD [email or web address]) OP-PT Subjective Patient Comments Patient Comments Pt states that her back has been sore at times, but over less sore and feels exercise are helping. PT-OP-F Manual Assessment Start: 10/07/17 17:41 Freq: Status: Active Protocol: Document 11/20/17 14:17 RCC (Rec: 11/20/17 14:25 RCC [email or web address]) Manual Assessments Soft Tissue Assessment Soft Tissue Mobility Assessment TTP: L piriformis PT-OP-K Range of Motion Start: 10/07/17 17:41 Freq: Status: Active Protocol: Document 10/06/17 13:45 DCW (Rec: 10/07/17 18:20 DCW [id number]) Lumbar Spine Range of Motion Lumbar Spine Active Degrees Testing Position Standing Flexion 60 Extension 20 ROM Limitations Pain PT-OP-L Special Tests Start: 10/07/17 17:41 Freq: Status: Active Protocol: Document 10/06/17 13:45 DCW (Rec: 10/07/17 18:20 DCW [id number]) Special Tests Lumbar Spine Special Tests Other- 1 Test Results Lateral SI pressure - R positive Straight Leg Raise Test Results Positive R ipsilateral Slump Test Results Positive bilaterally Hip Special Tests CARL Test Results Positive R ipsilateral PT-OP-M Strength Start: 10/07/17 18:20 Freq: Status: Active Protocol: Document 10/06/17 13:45 DCW (Rec: 10/07/17 18:23 DCW [id number]) Trunk Strength Trunk Manual Muscle Testing Testing Position Supine Core Stabilization Poor body awareness, difficulty kasey transverse abdominus, unable to hole PPT with TrA activation longer than 5 seconds. 3/5 Hip Strength Hip Manual Muscle Testing Right Flexion (L2) 4 Good Abduction 4 Good Adduction 4- Good- External Rotation 4 Good Internal Rotation 4- Good- Left Flexion (L2) 4 Good Abduction 4 Good Adduction 4- Good- External Rotation 4 Good Internal Rotation 4- Good- Knee Strength Knee Manual Muscle Testing Right Flexion (S2) 4 Good Extension (L3) 4+ Good+ Left Flexion (S2) 4 Good Extension (L3) 4+ Good+ PT-OP-Q Treatments Start: 10/07/17 17:41 Freq: Status: Active Protocol: Document 11/25/17 13:46 GGD (Rec: 11/25/17 15:48 GGD [email or web address]) Therapeutic Exercises Supine Exercises 8 Supine Exercise Name knee flex/ext and LTR with ball Side bilateral Equipment Used 65 cm 7 Supine Exercise Name Bridge with ball Side bilateral Equipment Used 65 cm Reps/Minutes 20 4 Supine Exercise Name PPT with marches 1 Supine Exercise Name Opposite soyl-jk-hfwxkvua Piriformis stretch Side left Sitting Exercises alt UE/LE lift on ball Sitting Exercise Name alternating UE/LE lift with PPT sitting on 65 cm ball Side bilateral Reps/Minutes 10 each Standing Exercises 1 Standing Exercise Name lateral walks Side bilateral Resistance green Reps/Minutes 2 laps each direction Manual Therapy Treatment Soft Tissue Mobilization 1 Body Location L/S and priformis Mobilization Type Myofascial Release Rolling Intensity/Depth Moderate Body Position Sidelying PT-OP-R Modalities Start: 10/07/17 17:41 Freq: Status: Active Protocol: Document 11/18/17 13:45 DCW (Rec: 11/18/17 15:39 DCW [id number]) Electric Stimulation Electric Stimulation Interferential Current (IFC) Body Location L/S Duration (Minutes) 15 Contraction Type Normal Patient Position Hooklying Combined With Heat/Cold Hot Pack PT-OP-T Assessment and Plan Start: 10/07/17 17:41 Freq: Status: Active Protocol: Document 11/25/17 13:46 GGD (Rec: 11/25/17 15:48 GGD [email or web address]) Physical Therapy Assessment Assessment Summary Assessment Pt improving with pain control . She needs less cueing for core stabilization. Physical Therapy Plan Frequency and Duration Frequency of Treatment 2x/Week Duration of Treatment 8 weeks Plan of Care Start Date 10/06/17 Plan of Care End Date 12/01/17 Next Visit Focus/Plan Next Note Type Treatment Note Next Visit Plan prog. HEP, plan for pt to return back to gym.
--- NOTE | 2018-01-13 11:57 | PT.OPDS ---
Current Diagnoses Lumbago with sciatica, right side (11/25/17) Provider Visit Care Team Role Provider Type Layo Aleman Attending Provider Non-Staff Primary Care Provider Specialty: Family Practice Address: [address] [place] [address] [id number], [place], [place], [facility] Email: Visit Number Visit Number 8 Discharge Summary PT-OP-B Current Condition Start: 10/07/17 17:41 Freq: Status: Active Protocol: Document 10/06/17 13:45 DCW (Rec: 10/07/17 18:20 DCW [id number]) Current Condition History of Current Condition Onset Date s/p one year Current Complaints Radicular low back pain History of Current Condition Pt is a 56 year old female presenting with a year-long history of low back pain radiating down her right leg, from her posterior hip to her lateral thigh, across her anterior knee, and down to her dorsal foot. Pt reports she received an MRI last December, which showed scoliosis and arthritis. Pt reports her pain on an average day is a 3-4/10 , however when she has a bad episode, pain increases to a 15/10. It's worse than childbirth. A lot worse, and I had all three kids without any drugs. Pt reports her pain appears to worsen with changes in the weather, and reports last winter was her worst period of time. Pt reports that nothing helps her pain, and she has had to go to the ER multiple times to get any relief. Treatment Goals Patient/Caregiver Goals I want to be able to go back to the gym a few days a week without worrying about my back . And I want to be able to play with my grandkids. Prior Functional Status Baseline Function- ADL's Independent Baseline Function- Mobility Independent Current Functional Impairments (Reported) Functional Limitations- Recreation/ Generally able to do most of Hobbies her hobbies, however when she is experiencing an episode of bad pain, she is unable to do anything at all. Personal Factors Other Personal Factors That May Effect Bipolar disorder, Depression, Therapy/Recovery Hx TBI, Fibromyalgia PT-OP-F Manual Assessment Start: 10/07/17 17:41 Freq: Status: Active Protocol: Document 11/20/17 14:17 RCC (Rec: 11/20/17 14:25 RCC [email or web address]) Manual Assessments Soft Tissue Assessment Soft Tissue Mobility Assessment TTP: L piriformis PT-OP-K Range of Motion Start: 10/07/17 17:41 Freq: Status: Active Protocol: Document 10/06/17 13:45 DCW (Rec: 10/07/17 18:20 DCW [id number]) Lumbar Spine Range of Motion Lumbar Spine Active Degrees Testing Position Standing Flexion 60 Extension 20 ROM Limitations Pain PT-OP-L Special Tests Start: 10/07/17 17:41 Freq: Status: Active Protocol: Document 10/06/17 13:45 DCW (Rec: 10/07/17 18:20 DCW [id number]) Special Tests Lumbar Spine Special Tests Other- 1 Test Results Lateral SI pressure - R positive Straight Leg Raise Test Results Positive R ipsilateral Slump Test Results Positive bilaterally Hip Special Tests CARL Test Results Positive R ipsilateral PT-OP-M Strength Start: 10/07/17 18:20 Freq: Status: Active Protocol: Document 10/06/17 13:45 DCW (Rec: 10/07/17 18:23 DCW [id number]) Trunk Strength Trunk Manual Muscle Testing Testing Position Supine Core Stabilization Poor body awareness, difficulty kasey transverse abdominus, unable to hole PPT with TrA activation longer than 5 seconds. 3/5 Hip Strength Hip Manual Muscle Testing Right Flexion (L2) 4 Good Abduction 4 Good Adduction 4- Good- External Rotation 4 Good Internal Rotation 4- Good- Left Flexion (L2) 4 Good Abduction 4 Good Adduction 4- Good- External Rotation 4 Good Internal Rotation 4- Good- Knee Strength Knee Manual Muscle Testing Right Flexion (S2) 4 Good Extension (L3) 4+ Good+ Left Flexion (S2) 4 Good Extension (L3) 4+ Good+ PT-OP-T Assessment and Plan Start: 10/07/17 17:41 Freq: Status: Active Protocol: Document 01/13/18 11:56 DCW (Rec: 01/13/18 11:57 DCW [id number]) Physical Therapy Assessment Goals Five Impairment Sacral tilt Short Term Goal (STG) Positioning of the sacrum WNL STG Duration 10/27/17 Four Impairment Lumbar ROM Alf Goal (LTG) Lumbar flexion/extension to WNL LTG Duration 11/17/17 Three Impairment Strength Short Term Goal (STG) Bilateral lower extremity MMT to grossly 4+/5 STG Duration 10/27/17 Produce Buyer Goal (LTG) Core strength to 4/5 LTG Duration 11/17/17 Two Impairment Activity Participation Produce Buyer Goal (LTG) Pt to attend gym 3x/ week over a two week period with no increased back pain LTG Duration 11/17/17 One Impairment Pt does not have an appropriate HEP Short Term Goal (STG) Pt to display independence and compliance with HEP STG Duration 10/27/17 Physical Therapy Plan Discharge Physical Therapy Discharge Reasons No Longer Attending PT Discharge Comments Due to insurance authorization regulations, following pt's last visit, she was required to return to her PCP to request additional authorization. Pt never returned after this, and has now not been seen in nearly two months. Pt will be discharged from skilled therapy at this time, and will require a new referral in order to return.
== END 2018-03-16 13:12 ==
LOC: PHYS 13:45
PROVIDERS: PCP Internal Medicine; Visit Provider Internal Medicine
DX: M54.41 Lumbago with sciatica, right side (principal)
CPT/HCPCS: 97014; 97110; 97140; 97163; G0283